=== PATIENT | female | born 1995 | race Caucasian/White ===

== ENCOUNTER → 2017-05-29 | Outpatient (CLI) | payer OTHER ==
[2017-05-29 16:33] LABS: BASO % 0.1 %; BASO ABS # 0.01 K/uL (0-0.2); COMPLETE YES; EOS % 1.7 %; HEMATOCRIT 37.4 % (37-47); IG% 0.1 %; LYMPH ABS # 1.86 K/uL (1.2-3.4); MEAN CELL VOLUME 86.4 fL (80-100); MEAN CORPUSCULAR HEMOGLOBIN 29.8 pg (25-34); MEAN CORPUSCULAR HGB CONC 34.5 g/dl (32-36); MEAN PLATELET VOLUME 11.9 fL (7.4-10.4); MONO % 9.8 %; NEUT % 65.3 %; PLATELET COUNT 229 K/uL (130-400); RED BLOOD COUNT 4.33 M/uL (4.2-5.4)
[2017-05-29 17:59] LABS: URINE APPEARANCE CLEAR (CLEAR); URINE BILIRUBIN NEG (NEG); URINE COLOR YELLOW; URINE EPITHELIAL CELL AUTO 20-30 /lpf (0-5); URINE NITRITE NEG (NEG); URINE PH 6.5 (4.5-7.5); URINE SPECIFIC GRAVITY 1.017 (1.000-1.030); UROBILINOGEN NEG (NEG)
[2017-05-29 18:13] LABS: MANUAL MICROSCOPIC REQUIRED? NO; REVIEW REQ? NO
[2017-06-01 11:58] LABS: CHLAMYDIA TRACH RNA*** NOT DETECTED (NOT DETECTED); GC (NEIS GONORRHOEAE)RNA** NOT DETECTED (NOT DETECTED); HERPES SIMPLEX CULT SOURCE GENITAL-VULVA; HERPES SIMPLEX VIRUS CULT ISOLATED (NOT ISOLATED)
== END | disposition home or self-care (01) ==
LOC: C.LAB1850 15:33
PROVIDERS: ATTEND Obstetrics & Gynecology
DX: Z34.90 Encounter for supervision of normal pregnancy, unspecified, unspecified trimester (principal); B00.9 Herpesviral infection, unspecified

== ENCOUNTER → 2017-07-17 | Outpatient (CLI) | payer OTHER ==
[~2017-07-17] MED LIST: NITR-5 PO; PEDICHW; VALA500T60 PO
== END | disposition home or self-care (01) ==
LOC: C.LAB1850 15:18
PROVIDERS: ATTEND Obstetrics & Gynecology
DX: R30.0 Dysuria (principal); Z34.02 Encounter for supervision of normal first pregnancy, second trimester

== ENCOUNTER 2017-10-02 11:49 | Outpatient (CLI) | payer OTHER ==
[~2017-10-02] VITALS: Ht 167.6 cm; Wt 88.0 kg
[2017-10-02] MEDS ORDERED: PEDICHW (12:08)
[2017-10-02 12:11] VITALS: Ht 167.6 cm; Wt 88.0 kg
== END 2017-10-02 12:28 | disposition home or self-care (01) ==
LOC: C.OPB 11:49 → C.LD 11:50 → C.OPB 12:28
PROVIDERS: ATTEND Obstetrics & Gynecology
DX: O36.8120 Decreased fetal movements, second trimester, not applicable or unspecified (principal); Z3A.27 27 weeks gestation of pregnancy

== ENCOUNTER → 2017-10-12 | Outpatient (CLI) | payer OTHER ==
[~2017-10-12] MED LIST changes: -NITR-5 PO; -VALA500T60 PO
[2017-10-12 14:54] LABS: HEMATOCRIT 32.6 % (37-47); HEMOGLOBIN 11.1 g/dL (12.0-16.0)
== END | disposition home or self-care (01) ==
LOC: C.LAB1850 11:51
PROVIDERS: ATTEND Obstetrics & Gynecology
DX: Z34.03 Encounter for supervision of normal first pregnancy, third trimester (principal); Z3A.00 Weeks of gestation of pregnancy not specified

== ENCOUNTER 2017-11-28 18:48 | Outpatient (CLI) | payer OTHER ==
[~2017-11-28] VITALS: Ht 170.2 cm; Wt 95.5 kg
[2017-11-28] MEDS ORDERED: VALA500T60 PO (19:39)
[2017-11-28 19:41] VITALS: Ht 170.2 cm; Wt 95.5 kg
[2017-11-28] MEDS ORDERED: NITR-5 PO (20:37)
--- NOTE | 2017-11-28 20:39 | Discharge Instructions ---
Discharge Instructions Date of Service November 28, 2017. Admission Reason for Admission: Check Rupture Of Membranes Discharge Discharge Diagnosis / Problem: vaginal discharge, UTI Discharge Goals Goal(s): Continuing OB care Activity Recommendations Activity Limitations: per Instructions/Follow-up section . Instructions / Follow-Up Instructions / Follow-Up SPECIAL CARE INSTRUCTIONS: Call Doctor if: * Regular contractions every 5 minutes * Bleeding * Water breaks or is leaking * Decreased movement * Fever >100.4 degrees F * Pain not relieved by routine measures or pain medication ordered. FOLLOW UP VISIT: Scheduled next obstetrical visit. Current Hospital Diet Patient's current hospital diet: Discharge Diet Recommended Diet: Regular OB Diet Pending Studies Studies pending at discharge: yes List of pending studies: urine culture Medical Emergencies . Who to Call and When: Medical Emergencies: If at any time you feel your situation is an emergency, please call 911 immediately. . Non-Emergent Contact Non-Emergency issues call your: Primary Care Provider, [employer] . . "Provider Documentation" section prepared by Negar Hunt. .
== END 2017-11-28 20:55 | disposition home or self-care (01) ==
LOC: C.OPB 18:48 → C.LD 18:48 → C.OPB 20:55
PROVIDERS: ATTEND Obstetrics & Gynecology
DX: O23.43 Unspecified infection of urinary tract in pregnancy, third trimester (principal); O26.893 Other specified pregnancy related conditions, third trimester; N89.8 Other specified noninflammatory disorders of vagina; O62.9 Abnormality of forces of labor, unspecified; Z3A.35 35 weeks gestation of pregnancy